=== PATIENT | male | born 1950 | race Caucasian/White ===

== ENCOUNTER 2020-07-04 13:47 | Outpatient (CLI) | payer BC | END 2020-07-04 13:48 | disposition home or self-care (01) | LOC: BICRAD 13:47 | PROVIDERS: ATTEND Urology | DX: N20.0 Calculus of kidney (principal) | CPT/HCPCS: 74018 ==

== ENCOUNTER 2021-09-04 10:45 | Outpatient (CLI) | payer MEDICARE, BC | END 2021-09-04 10:46 | disposition home or self-care (01) | LOC: BICRAD 10:45 | PROVIDERS: ATTEND Urology | DX: N20.0 Calculus of kidney (principal) | CPT/HCPCS: 74018 ==

== ENCOUNTER 2024-12-15 15:00 | Outpatient (CLI) | payer MEDICARE, BC | END 2024-12-15 15:01 | disposition home or self-care (01) | LOC: SCSMRI 15:00 | PROVIDERS: ATTEND Internal Medicine | DX: M25.511 Pain in right shoulder (principal); S46.811A Strain of other muscles, fascia and tendons at shoulder and upper arm level, right arm, initial encounter; M67.911 Unspecified disorder of synovium and tendon, right shoulder; M89.9 Disorder of bone, unspecified; R60.0 Localized edema ==